=== PATIENT | female | born 1980 | race Caucasian/White ===

== ENCOUNTER 2022-04-21 14:32 | Emergency (ER) | payer OTHER, SELFPAY ==
[2022-04-21 14:55] VITALS: BP 140/63; PULSE 77; RESP 20; TEMP 36.6; O2SAT 99; BMI 18.3
--- NOTE | 2022-04-21 15:03 | DI.RAD.S_ITS ---
PROCEDURE: XR CHEST 1V INDICATIONS: chest pain TECHNIQUE: One view of the chest was acquired. COMPARISON: None. FINDINGS: Surgical changes and devices: None. Lungs and pleura: Lungs are clear. No pleural effusions or pneumothorax. Mediastinum: Mediastinal contours appear normal. Heart size is normal. Bones and chest wall: No suspicious bony lesions. Overlying soft tissues appear unremarkable. IMPRESSION: Normal single-view chest. Dictated by: Emmett Spring M.D. on 04/21/2022 at 15:06 Approved by: Emmett Spring M.D. on 04/21/2022 at 15:06
[2022-04-21 15:45] VITALS: BP 124/58; PULSE 69; O2SAT 99
[2022-04-21 15:58] LABS: Add Manual Diff / Slide Review NO; Basophils Absolute Auto 0 /uL (0-100); Basophils Percent Auto 0.5 % (0-2); Eosinophils Absolute Auto 300 /uL (0-450); Eosinophils Percent Auto 4.1 % (2-4); Hematocrit 35.7 % (36-46); Hemoglobin 12.3 g/dL (12.0-16.0); Lymphocytes Absolute Auto 1700 /uL (1100-4500); Mean Corpuscular HGB Conc 34.6 % (30-36); Mean Corpuscular Hemoglobin 31.8 PG (26-34); Monocytes Absolute Auto 500 /uL (0-900); Monocytes Percent Auto 7.3 % (3-14); Neutrophils Absolute Auto 3700 /uL (1500-7000); Neutrophils Percent Auto 60.1 % (50-75); Platelet Count 229 X10^3/uL (150-400); Red Blood Cell Count 3.88 X10^6/uL (4.0-5.2); Red Cell Distribution Width 12.7 % (11.6-14.8); White Blood Cell Count 6.2 X10^3/uL (4.5-11.0)
[2022-04-21 16:05] LABS: Alanine Aminotransferase 22 IU/L (<35); Albumin 4.5 g/dL (3.5-5.0); Albumin Globulin Ratio 1.4 (1.0-2.8); Alkaline Phosphatase 51 U/L (38-126); Aspartate Aminotransferase 35 IU/L (14-36); BUN Creatinine Ratio 19.7 (6-22); Bilirubin Total 0.4 mg/dL (0.2-1.3); Blood Urea Nitrogen 14 mg/dL (7-17); Calcium 8.9 mg/dL (8.4-10.2); Carbon Dioxide 30 mmol/L (22-32); Chloride 101 mmol/L (98-107); Creatine Kinase 98 U/L (30-135); Estimated Glomerular Filt Rate > 60 mL/min (>60); Globulin 3.3 g/dL (1.7-4.1); Glucose 95 mg/dL (70-100); HEMOLYSIS 20 (0-50); Lipase 327 U/L (23-300); Potassium 3.8 mmol/L (3.4-5.1); Sodium 139 mmol/L (137-145); Total Protein 7.8 g/dL (6.3-8.2)
[2022-04-21 16:50] LABS: Troponin I < 0.012 ng/mL (0.01-0.034)
[2022-04-21 17:00] VITALS: BP 112/58; PULSE 77; O2SAT 100
--- NOTE | 2022-04-21 19:41 | PC.NURSE ---
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 Patient updated on plan of care, she reports continued chest pain. Patient strongly encouraged to stay in ED and she starts crying secondary to hunger. Patient offered a snack and water and patient declines.
--- NOTE | 2022-04-21 20:20 | ED.CHESTPAIN ---
HPI - Chest Pain General Chief Complaint: Chest Pain Stated Complaint: Chest Pains Time Seen by Provider: 04/21/22 18:07 Source: patient Mode of arrival: Ambulatory Limitations: no limitations History of Present Illness HPI narrative: 41-year-old woman with a history of DCIS breast cancer, eosinophilic esophagitis who has been having a week of intermittent chest tightness. She describes it as starting in the upper portion of her chest spreading across the entire chest she has noticed some palpitations lasting seconds with dyspnea associated with them. She notes that she had similar findings a year ago lasting for about a week after her Pfizer COVID vaccine. She has been well since then she notes that she did have a Covid19 disease 3 weeks ago she is feeling better overall from that perspective. She is able to speak in full sentences and describes no respiratory distress at all. Her symptoms have resolved. She is wondering if it may be anxiety she does note that she has been under increased stress recently. She also notes that she is still able to exercise that over the last week has found that fdc through her work out she simply is not feeling well and does not get the positive affects by the end of her work out. She describes increased work of breathing without overt wheezing. She has not had fevers this week, no significant cough, abdominal pain, vomiting, diarrhea, headaches, lower extremity edema, orthopnea. Related Data Allergies Allergy/AdvReac Type Severity Reaction Status Date / Time mold Allergy Verified 04/21/22 14:55 Penicillins Allergy Verified 04/21/22 14:55 Review of Systems Review of Systems Narrative: Remainder of complete review of systems is otherwise unremarkable except for that included in the HPI. Patient History Medical History Breast cancer Eosinophilic esophagitis Social History Smoking Status: Current every day smoker Smoking Status: Current every day smoker tobacco type: vaping alcohol intake frequency: holidays/special occasions only Substance Use Type: marijuana Exam Initial Vital Signs Initial Vital Signs: Vital Signs Temperature 98 F 04/21/22 14:55 Pulse Rate 77 04/21/22 14:55 Respiratory Rate 20 04/21/22 14:55 Blood Pressure 140/63 04/21/22 14:55 Pulse Oximetry 99 04/21/22 14:55 Oxygen Delivery Method 04/21/22 14:55 General: Healthy appearing, in no acute distress. Able to give a complete and coherent history. Well-nourished well-developed HEENT: Moist mucous membranes, normal sclera with reactive pupils, Neck: No JVD, supple Respiratory: Lungs are clear to auscultation, no wheezing no rales no rhonchi. Full and symmetrical air movement Cardiac: Regular rate and rhythm no murmurs no bruits Abdomen: Soft, nontender, good bowel tones, no flank pain Skin: Warm and dry, no rashes Neurologic: Grossly neurologically intact with no obvious asymmetries or abnormalities Extremities: No trauma, well perfused Psych: Cooperative, appropriate insight and affect Course Orders Ordered: ED Orders 04/21/22 15:03 XR chest 1V Stat EKG-12 Lead Stat 04/21/22 15:36 Complete Blood Count AUTO DIFF Stat Comprehensive Metabolic Panel Stat Lipase Stat Magnesium Stat Troponin & CK Cardiac Panel Stat 04/21/22 20:19 Troponin I Stat 04/21/22 20:40 D Dimer Stat Discontinued Medications Albuterol (Albuterol Hfa Prepack) 1 box MISC SEEINSTR ONE Stop: 04/21/22 20:46 Last Admin: 04/21/22 20:51 Dose: 1 box Documented By: KYLER Ketorolac Tromethamine (Ketorolac 30 Mg/Ml Vial) 15 mg IV NOW ONE Stop: 04/21/22 20:46 Last Admin: 04/21/22 20:50 Dose: 15 mg Documented By: KYLER Vital Signs Vital signs: Vital Signs - 8 hr 04/21/22 14:55 04/21/22 15:45 04/21/22 17:00 Temperature 98 F Pulse Rate 77 69 77 Respiratory Rate 20 Blood Pressure 140/63 124/58 L 112/58 L Pulse Oximetry 99 99 100 Oxygen Delivery Method Room Air Room Air Room Air MDM - Chest Pain Lab Data Result diagrams: 04/21/22 15:36 04/21/22 15:36 Labs: Lab Results 04/21/22 04/21/22 04/21/22 Range/Units 15:36 15:36 20:19 WBC 6.2 (4.5-11.0) X10^3/uL RBC 3.88 L (4.0-5.2) X10^6/uL Hgb 12.3 (12.0-16.0) g/dL Hct 35.7 L (36-46) % MCV 92.0 (80-100) fL MCH 31.8 (26-34) PG MCHC 34.6 (30-36) % RDW 12.7 (11.6-14.8) % Plt Count 229 (150-400) X10^3/uL Neut % (Auto) 60.1 (50-75) % Lymph % (Auto) 28.0 (25-40) % [place] % (Auto) 7.3 (3-14) % Eos % (Auto) 4.1 H (2-4) % Baso % (Auto) 0.5 (0-2) % Neut # (Auto) 3700 (3887-7856) /uL Lymph # (Auto) 1700 (6580-3406) /uL [place] # (Auto) 500 (0-900) /uL Eos # (Auto) 300 (0-450) /uL Baso # (Auto) 0 (0-100) /uL D-Dimer (<500) ng/ml Sodium 139 (137-145) mmol/L Potassium 3.8 (3.4-5.1) mmol/L Chloride 101 (98-107) mmol/L Carbon Dioxide 30 (22-32) mmol/L BUN 14 (7-17) mg/dL Creatinine 0.71 (0.52-1.04) mg/dL Estimated GFR > 60 (>60) mL/min BUN/Creatinine Ratio 19.7 (6-22) Glucose 95 (70-100) mg/dL Calcium 8.9 (8.4-10.2) mg/dL Magnesium 2.0 (1.6-2.3) mg/dL Total Bilirubin 0.4 (0.2-1.3) mg/dL AST 35 (14-36) IU/L ALT 22 (<35) IU/L Alkaline Phosphatase 51 (38-126) U/L Total Creatine Kinase 98 (30-135) U/L CK-MB (CK-2) TNP CK-MB (CK-2) Rel Index TNP Troponin I < 0.012 < 0.012 (0.01-0.034) ng/mL Total Protein 7.8 (6.3-8.2) g/dL Albumin 4.5 (3.5-5.0) g/dL Globulin 3.3 (1.7-4.1) g/dL Albumin/Globulin Ratio 1.4 (1.0-2.8) Lipase 327 H (23-300) U/L // Range/Units 20:40 WBC (4.5-11.0) X10^3/uL RBC (4.0-5.2) X10^6/uL Hgb (12.0-16.0) g/dL Hct (36-46) % MCV (80-100) fL MCH (26-34) PG MCHC (30-36) % RDW (11.6-14.8) % Plt Count (150-400) X10^3/uL Neut % (Auto) (50-75) % Lymph % (Auto) (25-40) % [place] % (Auto) (3-14) % Eos % (Auto) (2-4) % Baso % (Auto) (0-2) % Neut # (Auto) (4215-7274) /uL Lymph # (Auto) (0244-4137) /uL [place] # (Auto) (0-900) /uL Eos # (Auto) (0-450) /uL Baso # (Auto) (0-100) /uL D-Dimer < 215 (<500) ng/ml Sodium (137-145) mmol/L Potassium (3.4-5.1) mmol/L Chloride (98-107) mmol/L Carbon Dioxide (22-32) mmol/L BUN (7-17) mg/dL Creatinine (0.52-1.04) mg/dL Estimated GFR (>60) mL/min BUN/Creatinine Ratio (6-22) Glucose (70-100) mg/dL Calcium (8.4-10.2) mg/dL Magnesium (1.6-2.3) mg/dL Total Bilirubin (0.2-1.3) mg/dL AST (14-36) IU/L ALT (<35) IU/L Alkaline Phosphatase (38-126) U/L Total Creatine Kinase (30-135) U/L CK-MB (CK-2) CK-MB (CK-2) Rel Index Troponin I (0.01-0.034) ng/mL Total Protein (6.3-8.2) g/dL Albumin (3.5-5.0) g/dL Globulin (1.7-4.1) g/dL Albumin/Globulin Ratio (1.0-2.8) Lipase (23-300) U/L Imaging Data Chest x-ray: Radiologist's Impression: FINDINGS:? ? Surgical changes and devices:? None.? ? Lungs and pleura:? Lungs are clear.? No pleural effusions or pneumothorax.? ? Mediastinum:? Mediastinal contours appear normal.? Heart size is normal.? ? Bones and chest wall:? No suspicious bony lesions.? Overlying soft tissues appear unremarkable.? ? ? IMPRESSION:? ? Normal single-view chest. ? ? Dictated by: Emmett Spring M.D. on 04/21/2022 at 15:06 ? ? ECG Data Interpretation: Sinus rhythm at a rate of 69 Normal intervals, normal axis, no acute ischemic change MDM Narrative Medical decision making narrative: 41-year-old woman with complaints of chest pain. No evidence of acute coronary syndrome, pneumothorax, cardiomyopathy. Pleurisy, reactive airway disease and pulmonary embolism are all still within the differential. I am waiting for a D-dimer at this point. She does have an albuterol inhaler from 2020 but has never actually used it. Will ask our respiratory therapist to show her how to use an inhaler with a spacer. Minor if there may be a component of mild reactive airway disease/exercise-induced asthma that is worse after her recent episode of COVID. Pleurisy also remains within the differential. She is given a shot of Toradol to see if this affects her pain. 955pm she was leaves the Toradol may have helped. She was stone had to use a spacer and given a spacer but chose not to take any puffs of her albuterol. D-dimer is negative. At this point there is no evidence of life-threatening abnormality, pneumothorax, acute coronary syndrome, pulmonary embolism. Most likely explanation is a combination of pleurisy after her recent COVID infection and mild reactive airway disease. We had a long discussion regarding both of these. Recommended ibuprofen to help should she have recurrent pleuritic pain and I also suggested that she try 2 puffs of albuterol prior to her next workup to see if this was helpful. She will follow-up with her primary care physician and at this time she is safe for home discharge Discharge Plan Departure Patient Disposition: Home Clinical Impression: Pleurisy, Mild intermittent reactive airway disease Instructions: DI for Asthma -- Adult, DI for Pleurisy Activity Restrictions/Additional Instructions: Thank you for coming in today Your symptoms are concerning and was appropriate to fully evaluate thumb. I am not seeing any life-threatening findings today. Specifically there is no collapsed lung, blood clots in your lungs, bacterial infections, heart attack or heart attack like syndrome. I suspect that you likely have a combination of mild pleurisy after your recent COVID infection and mild reactive airway disease that is somewhat inflamed, again, after your recent COVID infection. For the pleuritic chest pain, using 400 mg of ibuprofen (2 [id number] pills) and 1 Tylenol every 6 hours can be very helpful in controlling pain. If you find that you are feeling short of breath or having a dry cough I will go ahead and try 2 puffs of your albuterol inhaler. I would also recommend trying 2 puffs prior to your next work out and see if you find that your breathing is easier and your work out is better tolerated. I would recommend follow-up with your primary care physician. If you find that you are getting worse or develop any new symptoms, please feel free to return to the emergency department for further evaluation. Referrals: Miscellaneous,[facility] [Primary Care Provider] -
[2022-04-21 20:47] LABS: Troponin I < 0.012 ng/mL (0.01-0.034)
[2022-04-21] MEDS: KETOROLAC 30 MG/ML VIAL 15 MG IV (20:50)
[2022-04-21] MEDS: ALBUTEROL HFA PREPACK 1 BOX MISC (20:51)
[2022-04-21 21:01] LABS: D Dimer < 215 ng/ml (<500)
[2022-04-21 22:06] VITALS: BP 139/77; PULSE 65; RESP 16; TEMP 36.4; O2SAT 100
== END 2022-04-21 22:07 | disposition home or self-care (01) ==
PROVIDERS: Emergency Medicine; Emergency Provider Emergency Medicine
DX: R09.1 Pleurisy (principal); J45.20 Mild intermittent asthma, uncomplicated; R00.2 Palpitations; Z86.16 Personal history of COVID-19
CPT/HCPCS: 36415; 51798; 71045; 80053; 82550; 83690; 83735; 84484; 85025; 85379; 93005; 93010; 96374; 99284; J1885

== ENCOUNTER → 2022-07-29 13:54 | Outpatient (CLI) | payer OTHER, SELFPAY | PROVIDERS: Visit Provider Student in an Organized Health Care Education/Training Program | DX: J02.9 Acute pharyngitis, unspecified (principal) | CPT/HCPCS: 87070 ==

== ENCOUNTER 2022-11-21 19:45 | Observation (INO) | payer OTHER, SELFPAY ==
[2022-11-21] VITALS (10 sets, daily range): BP systolic 101–129; BP diastolic 55–72; PULSE 64–91; RESP 14–23; TEMP 36.8; O2SAT 96–100; BMI 18.3
--- NOTE | 2022-11-21 20:01 | DI.RAD.S_ITS ---
PROCEDURE: XR CHEST 1V INDICATIONS: chest pain TECHNIQUE: One view of the chest was acquired. COMPARISON: [facility], CR, XR CHEST 1V, 04/21/2022, 15:37. FINDINGS: Surgical changes and devices: None. Lungs and pleura: Lungs are clear. No pleural effusions or pneumothorax. Mediastinum: Mediastinal contours appear normal. Heart size is normal. Bones and chest wall: No suspicious bony lesions. Overlying soft tissues appear unremarkable. IMPRESSION: 1. No acute cardiopulmonary disease. Dictated by: Inderjit De León M.D. on 11/21/2022 at 21:02 Approved by: Inderjit De León M.D. on 11/21/2022 at 21:02
[2022-11-21 20:09] LABS: Add Manual Diff / Slide Review NO; Basophils Absolute Auto 0 /uL (0-100); Basophils Percent Auto 0.4 % (0-2); Eosinophils Absolute Auto 400 /uL (0-450); Eosinophils Percent Auto 3.9 % (2-4); Hematocrit 39.3 % (36-46); Hemoglobin 13.4 g/dL (12.0-16.0); Lymphocytes Absolute Auto 2700 /uL (1100-4500); Lymphocytes Percent Auto 28.8 % (25-40); Mean Corpuscular HGB Conc 34.1 % (30-36); Mean Corpuscular Hemoglobin 31.3 PG (26-34); Mean Corpuscular Volume 91.7 fL (80-100); Monocytes Absolute Auto 500 /uL (0-900); Monocytes Percent Auto 5.6 % (3-14); Neutrophils Absolute Auto 5700 /uL (1500-7000); Neutrophils Percent Auto 61.3 % (50-75); Platelet Count 245 X10^3/uL (150-400); Red Blood Cell Count 4.28 X10^6/uL (4.0-5.2); Red Cell Distribution Width 12.3 % (11.6-14.8); White Blood Cell Count 9.3 X10^3/uL (4.5-11.0)
[2022-11-21 20:17] LABS: INR 0.9 (0.9-1.3); Prothrombin Time 10.8 SECONDS (10.1-12.7)
[2022-11-21 20:19] LABS: PTT Partial Thromboplastin Tim 32 SECONDS (26-36)
[2022-11-21 20:21] LABS: Alanine Aminotransferase 26 IU/L (<35); Albumin 4.4 g/dL (3.5-5.0); Albumin Globulin Ratio 1.3 (1.0-2.8); Alkaline Phosphatase 47 U/L (38-126); Aspartate Aminotransferase 32 IU/L (14-36); Bilirubin Total 0.3 mg/dL (0.2-1.3); Blood Urea Nitrogen 14 mg/dL (7-17); Calcium 9.1 mg/dL (8.4-10.2); Carbon Dioxide 26 mmol/L (22-32); Chloride 101 mmol/L (98-107); Creatine Kinase 58 U/L (30-135); Estimated Glomerular Filt Rate > 60 mL/min (>60); Globulin 3.3 g/dL (1.7-4.1); Glucose 145 mg/dL (70-100); HEMOLYSIS < 15 (0-50); Lipase 326 U/L (23-300); Magnesium 1.9 mg/dL (1.6-2.3); Potassium 3.6 mmol/L (3.4-5.1); Sodium 137 mmol/L (137-145); Total Protein 7.7 g/dL (6.3-8.2)
[2022-11-21 20:26] LABS: COVID19 -Nasal RAPID Negative (Negative)
[2022-11-21 20:32] LABS: Troponin I < 0.012 ng/mL (0.01-0.034)
--- NOTE | 2022-11-21 21:14 | ED_ITS ---
HPI - Chest Pain General Chief Complaint: Chest Pain Stated Complaint: Chest pain, High HR Time Seen by Provider: 11/21/22 20:58 Source: patient Mode of arrival: Ambulatory Limitations: no limitations History of Present Illness HPI narrative: Patient brought here by for complaints of chest pain palpitations dizziness and shortness of breath. Off and on ongoing for 2 months. She did have head injury in [place] but she states she passed out when she got out of bed at 8:00 p.m.. She was not sleeping. Since then she is had palpitations shortness of breath. Worsening with exertion or exercising. Patient denies any medical history of coronary disease heart attack strokes diabetes hypertension hyperlipidemia. No family history of coronary disease. Patient denies any history of blood clots in legs or lungs. Denies any calf pain. Today's symptoms were worse. Related Data Home Medications Medication Instructions Recorded Confirmed No Known Home Medications 09/30/22 09/30/22 Allergies Allergy/AdvReac Type Severity Reaction Status Date / Time cephalexin Allergy Chest Pain Verified 11/21/22 19:56 mold Allergy Verified 09/30/22 10:07 Penicillins Allergy Chest Pain Verified 11/21/22 19:56 Review of Systems Review of Systems Narrative: GENERAL: negative chills, fatigue, malaise, fever, sweats. HEENT: negative sinus pain, ear pain, sore throat RESPIRATORY: Positive dyspnea, negative cough CARDIOVASCULAR: Positive chest pain, palpitations GASTROINTESTINAL: negative nausea, vomiting, abdominal pain : negative dysuria, frequency, hematuria MUSCULOSKELETAL: negative muscle or bony pain SKIN: negative rash, skin lesions NEUROLOGIC: negative weakness, numbness positive dizziness ROS Unobtainable: All systems reviewed & are unremarkable except as noted in HPI and below Patient History Medical History Breast cancer Eosinophilic esophagitis Social History household members: spouse Smoking Status: Current every day smoker Smoking Status: Current every day smoker tobacco type: vaping alcohol intake frequency: holidays/special occasions only Substance Use Type: marijuana Exam Narrative Exam Narrative: GENERAL: in no distress, not toxic not dyspneic HEAD: Normocephalic. EYES: Pupils equal round ENT: Mucous membranes moist. NECK: Trachea midline. CARDIOVASCULAR: Regular rate and rhythm without murmurs, however patient became tachycardic at bedside on standing and marching in place. Heart rate 120. RESPIRATORY: Clear to auscultation. Breath sounds equal bilaterally. No wheezes, rales, or rhonchi. GASTROINTESTINAL: Abdomen soft, non-tender EXTREMITIES: No gross deformities. BACK: No flank tenderness. NEURO: AOx4. SKIN: Warm and dry PSYCH: Not anxious, is cooperative Initial Vital Signs Initial Vital Signs: Vital Signs Temperature 98.3 F 11/21/22 19:45 Pulse Rate 81 11/21/22 19:45 Respiratory Rate 20 11/21/22 19:45 Blood Pressure 129/72 11/21/22 19:45 Pulse Oximetry 100 11/21/22 19:45 Oxygen Delivery Method Room Air 11/21/22 19:45 Course Orders Ordered: ED Orders 11/21/22 23:53 Trop I [Troponin I] Stat Acetaminophen (Acetaminophen 325 Mg Tablet) 650 mg PO Q6H PRN PRN Reason: Fever/Mild Pain (1-3) Aspirin (Aspirin Ec 81 Mg Tablet) 81 mg PO DAILY [facility] Atorvastatin Calcium (Atorvastatin 20 Mg Tablet) 40 mg PO BEDTIME DEVON Enoxaparin Sodium (Enoxaparin 40 Mg/0.4 Ml Syringe) 40 mg SUBCUT DAILY [facility] Sodium Chloride (Normal Saline 0.9%) 1,000 mls @ 50 mls/hr IV CONT DEVON Last Admin: 11/22/22 02:25 Dose: 50 mls/hr Documented By: Naloxone HCl (Naloxone 0.4 Mg/Ml Vial) 0.2 mg IV Q2MIN PRN PRN Reason: Opiate Reversal Ondansetron HCl (Ondansetron 4 Mg/2 Ml Inj) 4 mg IV Q8HR PRN PRN Reason: Nausea And Vomiting Discontinued Medications Aspirin (Aspirin 81 Mg Chew Tab) 324 mg PO NOW ONE Stop: 11/21/22 20:02 Last Admin: 11/21/22 21:13 Dose: Not Given Documented By: Vital Signs Vital signs: Vital Signs - 8 hr 11/21/22 22:00 11/21/22 22:00 11/21/22 22:30 Pulse Rate 70 72 Respiratory Rate 14 16 Blood Pressure 107/58 L Pulse Oximetry 100 99 11/21/22 23:00 11/21/22 23:00 11/21/22 23:30 Pulse Rate 64 66 Respiratory Rate 20 22 Blood Pressure 110/58 L Pulse Oximetry 97 97 MDM - Chest Pain Lab Data 11/21/22 20:00 11/21/22 20:00 Labs: Lab Results 11/21/22 11/21/22 11/21/22 Range/Units 20:00 20:00 20:00 WBC 9.3 (4.5-11.0) X10^3/uL RBC 4.28 (4.0-5.2) X10^6/uL Hgb 13.4 (12.0-16.0) g/dL Hct 39.3 (36-46) % MCV 91.7 (80-100) fL MCH 31.3 (26-34) PG MCHC 34.1 (30-36) % RDW 12.3 (11.6-14.8) % Plt Count 245 (150-400) X10^3/uL Neut % (Auto) 61.3 (50-75) % Lymph % (Auto) 28.8 (25-40) % [place] % (Auto) 5.6 (3-14) % Eos % (Auto) 3.9 (2-4) % Baso % (Auto) 0.4 (0-2) % Neut # (Auto) 5700 (2276-5119) /uL Lymph # (Auto) 2700 (3962-3021) /uL [place] # (Auto) 500 (0-900) /uL Eos # (Auto) 400 (0-450) /uL Baso # (Auto) 0 (0-100) /uL PT 10.8 (10.1-12.7) SECONDS INR 0.9 (0.9-1.3) APTT 32 (26-36) SECONDS D-Dimer (<500) ng/ml Sodium 137 (137-145) mmol/L Potassium 3.6 (3.4-5.1) mmol/L Chloride 101 (98-107) mmol/L Carbon Dioxide 26 (22-32) mmol/L BUN 14 (7-17) mg/dL Creatinine 0.70 (0.52-1.04) mg/dL Estimated GFR > 60 (>60) mL/min BUN/Creatinine Ratio 20.0 (6-22) Glucose 145 H (70-100) mg/dL Calcium 9.1 (8.4-10.2) mg/dL Magnesium 1.9 (1.6-2.3) mg/dL Total Bilirubin 0.3 (0.2-1.3) mg/dL AST 32 (14-36) IU/L ALT 26 (<35) IU/L Alkaline Phosphatase 47 (38-126) U/L Total Creatine Kinase 58 (30-135) U/L CK-MB (CK-2) TNP CK-MB (CK-2) Rel Index TNP Troponin I < 0.012 (0.01-0.034) ng/mL Total Protein 7.7 (6.3-8.2) g/dL Albumin 4.4 (3.5-5.0) g/dL Globulin 3.3 (1.7-4.1) g/dL Albumin/Globulin Ratio 1.3 (1.0-2.8) Lipase 326 H (23-300) U/L TSH (0.47-4.68) uIU/mL SARS-CoV-2 (PCR) (Negative) 11/21/22 11/21/22 11/21/22 Range/Units 20:00 20:00 20:07 WBC (4.5-11.0) X10^3/uL RBC (4.0-5.2) X10^6/uL Hgb (12.0-16.0) g/dL Hct (36-46) % MCV (80-100) fL MCH (26-34) PG MCHC (30-36) % RDW (11.6-14.8) % Plt Count (150-400) X10^3/uL Neut % (Auto) (50-75) % Lymph % (Auto) (25-40) % [place] % (Auto) (3-14) % Eos % (Auto) (2-4) % Baso % (Auto) (0-2) % Neut # (Auto) (9285-3047) /uL Lymph # (Auto) (7143-6804) /uL [place] # (Auto) (0-900) /uL Eos # (Auto) (0-450) /uL Baso # (Auto) (0-100) /uL PT (10.1-12.7) SECONDS INR (0.9-1.3) APTT (26-36) SECONDS D-Dimer 275 (<500) ng/ml Sodium (137-145) mmol/L Potassium (3.4-5.1) mmol/L Chloride (98-107) mmol/L Carbon Dioxide (22-32) mmol/L BUN (7-17) mg/dL Creatinine (0.52-1.04) mg/dL Estimated GFR (>60) mL/min BUN/Creatinine Ratio (6-22) Glucose (70-100) mg/dL Calcium (8.4-10.2) mg/dL Magnesium (1.6-2.3) mg/dL Total Bilirubin (0.2-1.3) mg/dL AST (14-36) IU/L ALT (<35) IU/L Alkaline Phosphatase (38-126) U/L Total Creatine Kinase (30-135) U/L CK-MB (CK-2) CK-MB (CK-2) Rel Index Troponin I (0.01-0.034) ng/mL Total Protein (6.3-8.2) g/dL Albumin (3.5-5.0) g/dL Globulin (1.7-4.1) g/dL Albumin/Globulin Ratio (1.0-2.8) Lipase (23-300) U/L TSH 1.50 (0.47-4.68) uIU/mL SARS-CoV-2 (PCR) Negative (Negative) Imaging Data Chest x-ray: Radiologist's Impression: FINDINGS:? ? Surgical changes and devices:? None.? ? Lungs and pleura:? Lungs are clear.? No pleural effusions or pneumothorax.? ? Mediastinum:? Mediastinal contours appear normal.? Heart size is normal.? ? Bones and chest wall:? No suspicious bony lesions.? Overlying soft tissues appear unremarkable.? ? IMPRESSION:? ? 1.? No acute cardiopulmonary disease. MDM Narrative Medical decision making narrative: Patient brought here by for complaints of chest pain palpitations dizziness and shortness of breath. Off and on ongoing for 2 months. She did have head injury in [place] but she states she passed out when she got out of bed at 8:00 p.m.. She was not sleeping. Since then she is had palpitations shortness of breath. Worsening with exertion or exercising. Patient denies any medical history of coronary disease heart attack strokes diabetes hypertension hyperlipidemia. No family history of coronary disease. Patient denies any history of blood clots in legs or lungs. Denies any calf pain. Today's symptoms were worse. After history and exam CBC CMP troponin EKG D-dimer chest x-ray aspirin TSH MDM CC: Chest pain palpitations Complicating co-morbidities: None Data collected from: Patient and Medical records reviewed: No previous visits here for this complaint Differential considered: Includes but not limited to palpitations arrhythmia pulmonary embolism arrhythmia stable angina unstable angina Exam documented above, pertinent findings include: Tachycardic with standing up Lab Test results independently reviewed as above. Pertinent findings: WBC 9.3 hemoglobin 13.4 sodium 137 potassium 3.6 glucose 145 troponin less than 0.012 D-dimer 275 TSH 1.5 Independently reviewed EKG as above normal sinus rhythm normal EKG rate 73 Imaging studies independently reviewed: Chest x-ray no acute process Consultations: Spoke with cardiology, dr ruff, she recommends patient be admitted for stress test echocardiogram. Patient will need Holter monitoring after discharge from the hospital. 12:00 a.m., spoke with hospitalist dr wu, will admit pt Treatments: Aspirin Re-evaluations: 12:00 a.m.. Patient remains chest pain-free. No tachycardia unless getting up and walking. Patient and agree for admission. Discussion: Appropriate for admission for stress test as well as echocardiogram. Patient will need outpatient Holter monitor after discharge Diagnosis: Atypical chest pain Discharge Plan Departure Patient Disposition: Admitted as Observation Clinical Impression: Atypical chest pain Admit Date/Time: 11/21/22 23:55 Admit Provider: Jamil Wu
[2022-11-21 21:30] LABS: D Dimer 275 ng/ml (<500)
[2022-11-22] VITALS (11 sets, daily range): BP systolic 95–120; BP diastolic 50–71; PULSE 63–94; RESP 12–27; TEMP 36.2–36.7; O2SAT 98–100; BMI 18.3
[2022-11-22 00:34] LABS: Troponin I < 0.012 ng/mL (0.01-0.034)
--- NOTE | 2022-11-22 01:26 | PM.HP.1 ---
History of Present Illness History of Present Illness Date Patient Seen: 11/22/22 Time Patient Seen: 01:00 Chief complaint: Chest pain, High HR Narrative: Ms. Nam is a 42W who presents to the hospital with palpitations, dizziness, and chest pain. She notes that these symptoms are intermittent for the last two months. The inciting event seems to be that she began having them after a head injury where she lost consciousness two months ago. She has noted the symptoms previously when doing activity like exercising, but more recently noted the symptoms with standing. She has felt difficulty with sleep, fatigue, and memory. She has thought she has had post concussive symptoms. She has seen her PCP once recently. 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 In the ED workup was done, vitals notable for afebrile, heart rate 80s, blood pressure 120s/70s. Sats 100% on room air. Labs reviewed and notable for WBC 9.3, hgb 13.4, plts 245. Creatinine 0.70. LFTs normal. Troponin negative. D-dimer 275. Chest xray negative for acute process. EKG showed no acute process. ED physician called cardiology who recommended workup with ECHO and stress test. [facility], LATER [facility] Medical History Breast cancer Eosinophilic esophagitis Social History Smoking Status: Current every day smoker Meds Home Medications and Allergies Home Medications Medication Instructions Recorded Confirmed Type No Known Home Medications 09/30/22 09/30/22 History Allergies Allergy/AdvReac Type Severity Reaction Status Date / Time cephalexin Allergy Chest Pain Verified 11/21/22 19:56 mold Allergy Verified 09/30/22 10:07 Penicillins Allergy Chest Pain Verified 11/21/22 19:56 Review of Systems Review of Systems Narrative: 14 systems reviewed and negative aside from what is noted in HPI Exam Vital Signs (past 8 hours): - 11/21/22 19:45 11/21/22 19:52 11/21/22 19:52 Temperature 98.3 F Pulse Rate 81 91 H Respiratory Rate 20 20 Blood Pressure 129/72 129/72 Pulse Oximetry 100 100 Oxygen Delivery Method Room Air 11/21/22 20:00 11/21/22 20:00 11/21/22 20:30 Temperature Pulse Rate 83 Respiratory Rate 23 Blood Pressure 125/72 106/58 L Pulse Oximetry 99 Oxygen Delivery Method 11/21/22 20:30 11/21/22 21:00 11/21/22 21:00 Temperature Pulse Rate 78 76 Respiratory Rate 21 19 Blood Pressure 101/65 Pulse Oximetry 98 99 Oxygen Delivery Method 11/21/22 21:39 11/21/22 21:39 11/21/22 22:00 Temperature Pulse Rate 69 Respiratory Rate 19 Blood Pressure 113/55 L 107/58 L Pulse Oximetry 96 Oxygen Delivery Method 11/21/22 22:00 11/21/22 22:30 11/21/22 23:00 Temperature Pulse Rate 70 72 Respiratory Rate 14 16 Blood Pressure 110/58 L Pulse Oximetry 100 99 Oxygen Delivery Method 11/21/22 23:00 11/21/22 23:30 11/22/22 00:00 Temperature Pulse Rate 64 66 Respiratory Rate 20 22 Blood Pressure 113/55 L Pulse Oximetry 97 97 Oxygen Delivery Method 11/22/22 00:00 11/22/22 00:30 Temperature Pulse Rate 67 67 Respiratory Rate 27 H 18 Blood Pressure Pulse Oximetry 100 100 Oxygen Delivery Method Oxygen Delivery Method Room Air Narrative Exam Narrative: GEN: no acute distress HEENT: moist mucous membranes, PERRL NECK: trachea midline, no jVD PULM: clear bilaterally, no wheezes, rhonchi, rales CV: regular rate and rhythm, no murmurs ABD: soft, nontender, nondistended, no organomegaly, normal bowel sounds EXT: warm and well perfused, no edema NEURO: awake, alert, oriented, no focal deficits Objective Labs 11/21/22 20:00 11/21/22 20:00 Labs: Laboratory Results - last 24 hr 11/21/22 11/21/22 11/21/22 20:00 20:00 20:00 WBC 9.3 RBC 4.28 Hgb 13.4 Hct 39.3 MCV 91.7 MCH 31.3 MCHC 34.1 RDW 12.3 Plt Count 245 Neut % (Auto) 61.3 Lymph % (Auto) 28.8 [place] % (Auto) 5.6 Eos % (Auto) 3.9 Baso % (Auto) 0.4 Neut # (Auto) 5700 Lymph # (Auto) 2700 [place] # (Auto) 500 Eos # (Auto) 400 Baso # (Auto) 0 PT 10.8 INR 0.9 APTT 32 D-Dimer Sodium 137 Potassium 3.6 Chloride 101 Carbon Dioxide 26 BUN 14 Creatinine 0.70 Estimated GFR > 60 BUN/Creatinine Ratio 20.0 Glucose 145 H Calcium 9.1 Magnesium 1.9 Total Bilirubin 0.3 AST 32 ALT 26 Alkaline Phosphatase 47 Total Creatine Kinase 58 CK-MB (CK-2) TNP CK-MB (CK-2) Rel Index TNP Troponin I < 0.012 Total Protein 7.7 Albumin 4.4 Globulin 3.3 Albumin/Globulin Ratio 1.3 Lipase 326 H TSH SARS-CoV-2 (PCR) 11/21/22 11/21/22 11/21/22 20:00 20:00 20:07 WBC RBC Hgb Hct MCV MCH MCHC RDW Plt Count Neut % (Auto) Lymph % (Auto) [place] % (Auto) Eos % (Auto) Baso % (Auto) Neut # (Auto) Lymph # (Auto) [place] # (Auto) Eos # (Auto) Baso # (Auto) PT INR APTT D-Dimer 275 Sodium Potassium Chloride Carbon Dioxide BUN Creatinine Estimated GFR BUN/Creatinine Ratio Glucose Calcium Magnesium Total Bilirubin AST ALT Alkaline Phosphatase Total Creatine Kinase CK-MB (CK-2) CK-MB (CK-2) Rel Index Troponin I Total Protein Albumin Globulin Albumin/Globulin Ratio Lipase TSH 1.50 SARS-CoV-2 (PCR) Negative 11/22/22 00:00 WBC RBC Hgb Hct MCV MCH MCHC RDW Plt Count Neut % (Auto) Lymph % (Auto) [place] % (Auto) Eos % (Auto) Baso % (Auto) Neut # (Auto) Lymph # (Auto) [place] # (Auto) Eos # (Auto) Baso # (Auto) PT INR APTT D-Dimer Sodium Potassium Chloride Carbon Dioxide BUN Creatinine Estimated GFR BUN/Creatinine Ratio Glucose Calcium Magnesium Total Bilirubin AST ALT Alkaline Phosphatase Total Creatine Kinase CK-MB (CK-2) CK-MB (CK-2) Rel Index Troponin I < 0.012 Total Protein Albumin Globulin Albumin/Globulin Ratio Lipase TSH SARS-CoV-2 (PCR) Assessment & Plan Assessment & Plan narrative: 1. Chest pain and tachycardia -symptoms per patient happened after a concussion 2 months ago -could be consistent with POTS with exercise intolerance also noted, and post head injury -became mildly tachycardic with standing -troponin negative -check orthostatics -ordered echo -exercise stress test ordered -continue aspirin and statin 2. History of DCIS -stable 3. History of eosinophilic esophagitis -stable I have discussed plan and obtained history from patient and family at bedside. I have discussed plan of care with ED physician and bedside nurse. I have reviewed labs, imaging.
--- NOTE | 2022-11-22 01:37 | DI.ECHO.S_ITS ---
[facility]---------+ [facility] +---------+ : : [address] : : : : [phone] : : : : Phone: [phone]+ Echocardiogram Report + + :Name: MIGUEL MARIANO Study Date: 11/22/2022 Height: 65 in : :[facility] ReadingLocation: Weight: 110 lb : : Gender: Female BSA: 1.5 m2 : :: 1980 Age: 42 yrs BP: 112/55 mmHg: :Reason For Study: CHEST PAIN : :Ordering Physician: JENNIFER, : :RICHARD Performed By: Cele New : :Referring: RICHARD RODRIGUEZ : + + Interpretation Summary The ejection fraction is estimated to be 60-65%. Left ventricular wall motion is normal. Diastolic parameters suggest probable normal left ventricular diastolic function and normal filling pressures. The right ventricle is normal in size and function. The IVC is of normal diameter and collapses greater than 50% with a sniff. This suggests a low right atrial pressure of 3 mm Hg. No significant valvular abnormality. Procedure: A two-dimensional transthoracic echocardiogram with color flow and Doppler was performed. The study quality was technically adequate. There is no prior echocardiogram noted for this patient. The patient was in sinus rhythm with heart rates between 55-67 bpm during the exam. Left Ventricle: The left ventricle is normal in size and wall thickness. A false chord is noted (normal variant). The ejection fraction is estimated to be 60-65%. Left ventricular wall motion is normal. Diastolic parameters suggest probable normal left ventricular diastolic function and normal filling pressures. Right Ventricle: The right ventricle is normal in size and function. Atria: The left atrial size is normal. Right atrial size is normal. There is no Doppler evidence for an interatrial shunt. Mitral Valve: The mitral valve is normal in structure and function. There is trace mitral regurgitation. Aortic Valve: The aortic valve opens well. There is no aortic valve stenosis. No aortic regurgitation is present. Tricuspid Valve: The tricuspid valve is normal in structure and function. There is a trace or physiologic amount of tricuspid regurgitation. Pulmonic Valve: The pulmonic valve is not well seen, but is grossly normal. There is no pulmonic valvular regurgitation. Great Vessels: The aortic root is normal size. The ascending aorta could not be visualized. The IVC is of normal diameter and collapses greater than 50% with a sniff. This suggests a low right atrial pressure of 3 mm Hg. Pericardium/ Pleura There is no pericardial effusion. There is no pleural effusion. MMode/2D Measurements & Calculations LVIDd: 4.0 cm LVOT diam: 1.9 cm LVIDs: 2.5 cm Ao root diam: 2.8 cm FS: 37.1 % Ao Arch Diam (Prox Trans): 1.8 cm EPSS: 0.42 cm IVSd: 0.54 cm LVPWd: 0.57 cm LV combs. diameter/BSA (cm/m^2): 2.6 LV sys. diameter/BSA (cm/m^2): 1.6 LA A2 area: 9.0 cm2 RA long axis: 3.8 cm LA A4 area: 8.7 cm2 RA area: 9.9 cm2 LA length (vol): 3.4 cm RA vol: 21.7 ml LA vol: 19.8 ml RA : 14.1 ml/m2 LA vol index: 12.9 ml/m2 IVC diam: 1.3 cm RVD1 (basal): 2.6 cm RVD2 (mid): 2.4 cm TAPSE: 2.0 cm Doppler Measurements & Calculations Ao V2 max: 109.3 cm/sec LVOT Max Florin: 86.2 cm/sec Ao V2 mean: 82.8 cm/sec LV V1 max P.0 mmHg Ao max P.8 mmHg LV V1 VTI: 16.5 cm Ao mean P.0 mmHg TONA(I,D): 2.0 cm2 Ao V2 VTI: 24.3 cm TONA(V,D): 2.3 cm2 sev ratio: 0.68 TONA indexed to BSA (cm^2/m^2): 1.3 MV E max florin: 96.4 cm/sec PA pr(Accel): 17.3 mmHg MV A max florin: 61.9 cm/sec MV E/A: 1.6 Med Peak E' Florin: 15.0 cm/sec E/E' med: 6.4 Lat Peak E' Florin: 20.5 cm/sec E/E' lat: 4.7 E/e' average: 5.6 MV dec time: 0.18 sec SV(LVOT): 48.3 ml Reading Physician:ANNIE
[2022-11-22] MEDS: SODIUM CHLORIDE 0.9% 1,000 ML 50 ML IV (02:25)
--- NOTE | 2022-11-22 05:28 | PC.NURSE ---
PT alert and oriented x 4, denies pain at this time. Heart sounds regular, denies chest pain. Lungs clear, no noted SOA, on RA sat at 98%. Bowel tones in all 4Q's denies N or V. Skin clean and no open areas, scar on R forehead, fading bruise on R cheek.
--- NOTE | 2022-11-22 10:54 | CM.DANOTE ---
Initial Assessment Note Patient is a 42 yo F resident of [place], presents with palpitations, dizziness, and chest pain, intermittent over the last two months No PCP listed Payer [employer] Patient scheduled for echo and stress test and is expected to return home afterwards. Close outpatient follow up recommended Patient Indp and active at baseline and denies needs at this time from CM team Plan: Home w/family, close outpatient follow up expected JW Discharge Planning/Care Management CM Discharge Assessment Start: 11/22/22 10:40 Freq: Status: Active Protocol: Document 11/22/22 10:40 ASHLEY (Rec: 11/22/22 10:54 ASHLEY [id number]) Discharge Planning Assessment Assigned [employer] Supervisor IBRAHIMA Colin DPOA/Assigned Designee Name Faye Garcia, mom and dad Contact Information [phone] Advance Directives? No History Provided By Patient,Medical Record Prior Living Arrangements House Household Members spouse Type of transportation used prior to Drives own vehicle admit Independent with ADL's Yes Is patient alert and oriented? Yes Barriers to Discharge No Discharge Plan Home Transportation Arrangement Family Referrals Initiated None needed
--- NOTE | 2022-11-22 13:06 | PM.DS.1 ---
History of Present Illness History of Present Illness Date Patient Seen: 11/22/22 Time Patient Seen: 13:06 Chief complaint: Chest pain, High HR Narrative: Per admitting provider, Ms. Nam is a 42W who presents to the hospital with palpitations, dizziness, and chest pain. She notes that these symptoms are intermittent for the last two months. The inciting event seems to be that she began having them after a head injury where she lost consciousness two months ago. She has noted the symptoms previously when doing activity like exercising, but more recently noted the symptoms with standing. She has felt difficulty with sleep, fatigue, and memory. She has thought she has had post concussive symptoms. She has seen her PCP once recently. 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 In the ED workup was done, vitals notable for afebrile, heart rate 80s, blood pressure 120s/70s. Sats 100% on room air. Labs reviewed and notable for WBC 9.3, hgb 13.4, plts 245. Creatinine 0.70. LFTs normal. Troponin negative. D-dimer 275. Chest xray negative for acute process. EKG showed no acute process. ED physician called cardiology who recommended workup with ECHO and stress test. Discharge Providers Provider Date of admission: 11/21/22 23:55 Discharge Date: 11/22/22 Primary care physician: Doctor Jaqueline MD Discharge provider: Nik Serrano DO Summary Hospital Course Discharge Diagnosis: 1. Chest pain and tachycardia 2. History of DCIS 3. History of eosinophilic esophagitis Hospital Course: This was a 42-year-old female who initially presented with chest pain. She was admitted for further evaluation after cardiology recommended echocardiogram and stress testing. Echocardiogram was ultimately unremarkable, and stress testing was deemed a low risk study. Her symptoms may be consistent with POTS given her prior head injury, and should symptoms continue further follow-up with her primary care provider is recommended possible Holter monitor or other diagnostic evaluations. She felt improved the day after admission and was discharged home after results of her echocardiogram and stress testing were discussed with the patient. No home medications are recommended at this time. Time Spent with Patient Time spent: Less than 30 minutes Exam Vital Signs (past 8 hours): - 11/22/22 07:00 11/22/22 07:00 11/22/22 08:00 Temperature 97.1 F L Pulse Rate 85 Pulse Rate [Orthostatic Lying] Pulse Rate [Orthostatic Sitting] Pulse Rate [Orthostatic Standing] Respiratory Rate 17 Blood Pressure 109/57 L Blood Pressure [Orthostatic Lying] Blood Pressure [Orthostatic Sitting] Blood Pressure [Orthostatic Standing] Pulse Oximetry 99 98 Oxygen Delivery Method Room Air Room Air Oxygen Flow Rate 0 11/22/22 08:00 11/22/22 12:00 Temperature 97.1 F L Pulse Rate 77 Pulse Rate [Orthostatic Lying] 85 Pulse Rate [Orthostatic Sitting] 81 Pulse Rate [Orthostatic Standing] 94 H Respiratory Rate 17 Blood Pressure 116/66 Blood Pressure [Orthostatic Lying] 109/57 L Blood Pressure [Orthostatic Sitting] 118/63 Blood Pressure [Orthostatic Standing] 95/51 L Pulse Oximetry 98 Oxygen Delivery Method Oxygen Flow Rate 0 Oxygen Delivery Method Room Air Oxygen Flow Rate 0 Narrative Exam Narrative: GEN: no acute distress EXT: warm and well perfused, no edema NEURO: awake, alert, oriented, no focal deficits Objective Labs 11/21/22 20:00 11/21/22 20:00 Labs: Laboratory Results - last 24 hr 11/21/22 11/21/22 11/21/22 20:00 20:00 20:00 WBC 9.3 RBC 4.28 Hgb 13.4 Hct 39.3 MCV 91.7 MCH 31.3 MCHC 34.1 RDW 12.3 Plt Count 245 Neut % (Auto) 61.3 Lymph % (Auto) 28.8 [place] % (Auto) 5.6 Eos % (Auto) 3.9 Baso % (Auto) 0.4 Neut # (Auto) 5700 Lymph # (Auto) 2700 [place] # (Auto) 500 Eos # (Auto) 400 Baso # (Auto) 0 PT 10.8 INR 0.9 APTT 32 D-Dimer Sodium 137 Potassium 3.6 Chloride 101 Carbon Dioxide 26 BUN 14 Creatinine 0.70 Estimated GFR > 60 BUN/Creatinine Ratio 20.0 Glucose 145 H Calcium 9.1 Magnesium 1.9 Total Bilirubin 0.3 AST 32 ALT 26 Alkaline Phosphatase 47 Total Creatine Kinase 58 CK-MB (CK-2) TNP CK-MB (CK-2) Rel Index TNP Troponin I < 0.012 Total Protein 7.7 Albumin 4.4 Globulin 3.3 Albumin/Globulin Ratio 1.3 Lipase 326 H TSH SARS-CoV-2 (PCR) 11/21/22 11/21/22 11/21/22 20:00 20:00 20:07 WBC RBC Hgb Hct MCV MCH MCHC RDW Plt Count Neut % (Auto) Lymph % (Auto) [place] % (Auto) Eos % (Auto) Baso % (Auto) Neut # (Auto) Lymph # (Auto) [place] # (Auto) Eos # (Auto) Baso # (Auto) PT INR APTT D-Dimer 275 Sodium Potassium Chloride Carbon Dioxide BUN Creatinine Estimated GFR BUN/Creatinine Ratio Glucose Calcium Magnesium Total Bilirubin AST ALT Alkaline Phosphatase Total Creatine Kinase CK-MB (CK-2) CK-MB (CK-2) Rel Index Troponin I Total Protein Albumin Globulin Albumin/Globulin Ratio Lipase TSH 1.50 SARS-CoV-2 (PCR) Negative 11/22/22 00:00 WBC RBC Hgb Hct MCV MCH MCHC RDW Plt Count Neut % (Auto) Lymph % (Auto) [place] % (Auto) Eos % (Auto) Baso % (Auto) Neut # (Auto) Lymph # (Auto) [place] # (Auto) Eos # (Auto) Baso # (Auto) PT INR APTT D-Dimer Sodium Potassium Chloride Carbon Dioxide BUN Creatinine Estimated GFR BUN/Creatinine Ratio Glucose Calcium Magnesium Total Bilirubin AST ALT Alkaline Phosphatase Total Creatine Kinase CK-MB (CK-2) CK-MB (CK-2) Rel Index Troponin I < 0.012 Total Protein Albumin Globulin Albumin/Globulin Ratio Lipase TSH SARS-CoV-2 (PCR) PFSH Medical History Breast cancer Eosinophilic esophagitis Social History household members: spouse Smoking Status: Current every day smoker Discharge Plan Discharge Plan Patient Disposition: Home Provider Discharge Comment: You were admitted to the hospital with chest pain. Stress testing and ultrasound of your heart was completely normal. Please follow up with PCP if symptoms continue, may need holter monitor. Discharge orders & Medications Prescriptions: No Action No Known Home Medications Follow up/Referrals: Doctor Parsons MD [Primary Care Provider] - Diet/Activity/Treatments Diet: Diet as Tolerated Activity: As tolerated Visit Report/Discharge Packet Stand Alone Forms: Patient Portal/API, Stroke Signs & Symptoms Discharge Data Primary Care Provider: Miscellaneous,Doctor Attending Provider: Jamil Wu Admit Date/Time: 11/21/22 23:55 Discharges patient from system. Discharge Date/Time: 11/22/22 14:21
--- NOTE | 2022-11-22 14:20 | PC.NURSE ---
Pt discharged home at 1400, escorted off floor in wheelchair accompanied by hospital staff. IV removed, tele d/c'd, discharge teaching reviewed including follow up appointments for worsening symptoms. Questions answered. All belongings left with patient.
--- NOTE | 2022-11-23 00:32 | DI.NM.S_ITS ---
DATE OF SERVICE: 11/22/2022 PROCEDURE: Exercise treadmill stress test without imaging. ORDERING PROVIDER: Jamil Wu M.D. INDICATIONS: The patient is a 42-year-old female admitted with a 2-month history of chest discomfort and palpitations. FINDINGS: 1. The patient was able to exercise for 9 minutes 34 seconds on a standard Vladimir protocol, suggesting very good exercise capacity with an WALTER of -14%, achieving 9.6 METS. 2. She had a normal heart rate and blood pressure response to exercise, achieving a maximum heart rate of 152 BPM (86% of her predicted maximum). 3. She had no chest pain or other anginal symptoms. 4. Her resting ECG shows sinus rhythm with normal ST segments. There were no significant ST-segment shifts or arrhythmias with stress. IMPRESSION: 1. Normal exercise treadmill stress test for ischemia. 2. Very good exercise capacity without angina or arrhythmias. Aisa Nam - RS/fn/ec doc#: [id number]/job#: [id number] dd: 11/22/2022 12:43:00 dt: 11/22/2022 23:58:00 DICTATING /COPIES TO: Buster Maldonado MD; Jamil Wu M.D. COPIES MNE: GREG;
== END 2022-11-22 14:21 | disposition home or self-care (01) ==
LOC: ED 20:58 → AC 23:56
PROVIDERS: Admitting Provider Internal Medicine; Emergency Provider Emergency Medicine; Referring Provider Emergency Medicine; Visit Provider Internal Medicine
DX: R07.9 Chest pain, unspecified (principal); R00.0 Tachycardia, unspecified; R42 Dizziness and giddiness; F17.200 Nicotine dependence, unspecified, uncomplicated; Z86.000 Personal history of in-situ neoplasm of breast; Z20.822 Contact with and (suspected) exposure to COVID-19
CPT/HCPCS: 36415; 71045; 80053; 82550; 83690; 83735; 84443; 84484; 85025; 85379; 85610; 85730; 87635; 93005; 93017; 93306; 99284; C9803; G0378